=== PATIENT | male | born 1945 | race Caucasian/White ===

== ENCOUNTER 2016-06-30 01:19 | Day surgery (SDC) | payer MEDICARE ==
[~2016-06-30] VITALS: Ht 188 cm; Wt 111.9 kg
[~2016-06-30 01:19] MED LIST: ASCO-294 PO; ASPI-973 PO; BUME1TAB4 PO; CALC0.257 PO; CALC500T9 PO; CARV12.52 PO; CHOL10008 PO; CYAN500T53 SL; FEG324 PO; FLUT15.88 NOSTRIL; GABA600T2 PO; MULT1CAP33 PO; POTA-62 PO; PRE10 PO; PRE20 PO; SODI650T PO
[2016-06-30] MEDS ORDERED: CeFAZolin Inj 2 GM in IV Premix 1 EACH IV ONE (06:00)
[2016-06-30 06:30] VITALS: BP 165/73; PULSE 70; RESP 16; O2SAT 97
--- NOTE | 2016-06-30 06:30 | NUR ---
ADMISSION NOTE MALE PT ADMITTED FOR TUNNEL CATH INSERTION. DISCUSSED PLAN OF CARE WITH PT AND . SEE ADMIT AND FLOW SHEET
[2016-06-30 06:59] LABS: BASOPHILS % (AUTO) 0.2 % (0-3); EOSINOPHILS % (AUTO) 1.8 % (0-5); MONOCYTES % (AUTO) 3.9 % (4-12); Mean Corpuscular Hemoglobin 29.9 pg (27.0-35.0); Mean Corpuscular Volume 97.1 fL (81-100); NEUTROPHILS % (AUTO) 85.7 % (40-74); Platelet Count 130 bil/L (150-400)
[2016-06-30 07:12] LABS: INR 1.06 ratio
[2016-06-30] MEDS ORDERED: Heparin 5,000 Units/500 mL NS Premix IV ONE (07:50)
[2016-06-30] MEDS ORDERED: Heparin 1,000 Unit/mL 10 mL Inj ONE (07:50)
[2016-06-30] MEDS ORDERED: CeFAZolin Inj 2 gm / 50mL D5W IV ONE (08:20)
[2016-06-30] MEDS ORDERED: fentaNYL-PF 50 mCg/mL 2 mL Inj ONE (08:41)
[2016-06-30 09:15] VITALS: BP 156/56; PULSE 68; RESP 17; O2SAT 97
[2016-06-30 09:30] VITALS: BP 132/55; PULSE 68; RESP 17; O2SAT 97
[2016-06-30 09:45] VITALS: BP 144/64; PULSE 69; RESP 17; O2SAT 97
[2016-06-30 10:15] VITALS: BP 150/67; PULSE 70; RESP 16
--- NOTE | 2016-06-30 10:53 | NUR ---
DISCHARGE NOTE UP IN ROOM, TOLERATED WELL. DRESSING DRY AND INTACT. INSTRUCTIONS GIVEN. HOME WITH
--- NOTE | 2016-06-30 11:35 | DRSVH ---
PROCEDURE: CV TUNNEL CATH PLCMNT 1. Sonographic guidance for venous access. 2. Conscious sedation for 28 minutes. 3. Right internal jugular vein tunneled hemodialysis catheter placement. 4. Fluoroscopic guidance for catheter placement. INDICATIONS: ESRD TECHNIQUE: The indications, alternatives, benefits, risks, and complications of the procedure were e xplained to the patient and any family members present. Informed written consent was obtained and pl aced in the chart. The patient was brought to the angiography suite, and conscious sedation was admi nistered intravenously by prison staff, while continuous cardiorespiratory monitoring was pe rformed. Maximum sterile barrier technique was employed per standard protocol, including hand hygiene, cap, ma sk, sterile gown and gloves, and 2% chlorhexidine. Sterile ultrasound probe cover was also utilized. 1% lidocaine was used for local anaesthesia. Under sonographic guidance, the right internal jugular vein was accessed with a Micropuncture set. An 0.035J wire was advanced into the vena cava. Subcuta neous tunnel was created within the right anterior chest wall, through which a 14.5 English double lum en tunneled hemodialysis catheter was advanced. Following sequential venotomy tract dilation, the ca theter was advanced through the peel-away sheath and the tip was placed at the cavoatrial junction. Peel-away sheath was removed. Adequate flow was obtained through both lumens of the catheter. The v enotomy was closed with Vicryl, and the catheter was fastened to the skin with Ticron. Both lumens w ere flushed with heparinized saline. The patient tolerated the procedure without difficulty and was in stable condition at the conclusion of the procedure. COMPARISON: None. FINDINGS: The right internal jugular vein is patent by ultrasound. Fluoroscopic imaging demonstrates tip of th e catheter at the cavoatrial junction. IMPRESSION: Right internal jugular vein tunneled hemodialysis catheter placement using sonographic and fluoroscop ic guidance. Dictated by: Ramsey Walters M.D. on 06/30/2016 at 11:33 Approved by: Ramsey Walters M.D. on 06/30/2016 at 11:33
== END 2016-06-30 23:59 | disposition home or self-care (01) ==
LOC: SPI 01:19
PROVIDERS: ATTEND Radiology Diagnostic Radiology
DX: I12.0 Hypertensive chronic kidney disease with stage 5 chronic kidney disease or end stage renal disease (principal); N18.6 End stage renal disease; I25.10 Atherosclerotic heart disease of native coronary artery without angina pectoris; Z98.84 Bariatric surgery status; Z95.1 Presence of aortocoronary bypass graft; Z95.0 Presence of cardiac pacemaker; G47.33 Obstructive sleep apnea (adult) (pediatric); D64.9 Anemia, unspecified
CPT/HCPCS: 36558; 77001; 80048; 85025; 85610; 99152; 99153; C1750; C1769; J0690; J1644; J2250; J3010; J7030

== ENCOUNTER 2016-09-24 07:51 | Day surgery (SDC) | payer MEDICARE ==
[~2016-09-24] VITALS: Ht 189.2 cm; Wt 102.0 kg
[~2016-09-24 07:51] MED LIST changes: -CALC0.257 PO; +CALC667C9 PO; +GABA-502 PO; -GABA600T2 PO; -MULT1CAP33 PO; -POTA-62 PO; -SODI650T PO
[2016-09-24 08:38] LABS: BASOPHILS % (AUTO) 0.2 % (0-3); EOSINOPHILS % (AUTO) 1.7 % (0-5); MONOCYTES % (AUTO) 6.4 % (4-12); Mean Corpuscular Hemoglobin 29.6 pg (27.0-35.0); Mean Corpuscular Volume 94.6 fL (81-100); NEUTROPHILS % (AUTO) 80.9 % (40-74); Platelet Count 167 bil/L (150-400)
[2016-09-24] MEDS ORDERED: CETI5TAB28 PO (08:53)
--- NOTE | 2016-09-24 08:59 | NUR ---
Admitted for removal of Upper Left chest tunnel catheter today. Plan is to attempt to remove tunnel catheter at bedside, if not easily removed patient will go back to the casting house laborer. patient and are at the bedside and understand plan of care.
[2016-09-24 09:08] VITALS: BP 125/56; PULSE 70; RESP 12; O2SAT 99
[2016-09-24 09:58] VITALS: BP 128/61; PULSE 74; RESP 16; O2SAT 97
--- NOTE | 2016-09-24 10:11 | NUR ---
BRIONNA No bleeding or hematoma at left chest tunnel cath removal site. Discharge instructions reviewed, written information given and questions answered. Discharge home with at 1015.
--- NOTE | 2016-10-13 09:45 | DRSVH ---
PROCEDURE: CV REMOVE CATH TUNLD INDICATIONS: ESRD COMPARISON: None. FINDINGS: The tunneled hemodialysis catheter was successfully removed at the bedside. IMPRESSION: Status post removal of a tunneled hemodialysis catheter. Dictated by: Marivel Tellez M.D. on 10/13/2016 at 9:42 Approved by: Marivel Tellez M.D. on 10/13/2016 at 9:43
== END 2016-09-24 23:59 | disposition home or self-care (01) ==
LOC: SOUO 07:51
PROVIDERS: ATTEND Radiology Vascular & Interventional Radiology
DX: Z49.01 Encounter for fitting and adjustment of extracorporeal dialysis catheter (principal); N18.6 End stage renal disease

== ENCOUNTER 2016-10-07 11:46 | Observation (INO) | payer MEDICARE ==
[~2016-10-07 11:46] MED LIST changes: -CARV12.52 PO; +CETI5TAB28 PO
--- NOTE | 2016-10-07 15:22 | NUR ---
Arrival to [facility] Patient is alert and orientedx3. Patient arrived to [facility] approx 1315 via ambulance from [facility]. report received from Ruben RN in the [facility] unit. Ruben nurse paged Dr. Marcelo r/t patient's arrival to [facility]. Currently just transffered from 249-2 to Dialysis room 244 for dialysis. [facility] nurse aware.
--- NOTE | 2016-10-07 16:30 | NUR ---
Dialysis note: Tried to access WAN fistula but unsuccessful, venous needle sluggish and aspirated dark blood; Dr Will notified and dialysis tx cancelled.
[2016-10-07] MEDS ORDERED: Alum-Mag Hydrox-Simeth 30 mL Suspension PO PRN (16:40)
[2016-10-07] MEDS ORDERED: Ondansetron 2 mg/mL 2 mL Inj IVPUSH PRN (16:40)
[2016-10-07] MEDS ORDERED: Polyethylene Glycol (PEG) 17 Gm Powder PO PRN (16:40)
--- NOTE | 2016-10-07 16:56 | NUR ---
Arrival time to [facility] Arrival time to [facility] 1515.
[2016-10-07 17:06] VITALS: BP 109/66; PULSE 67; RESP 16; O2SAT 98
[2016-10-07] MEDS ORDERED: CETI10CA PO (17:31)
[2016-10-07] MEDS ORDERED: CALC500T9 PO (17:31)
[2016-10-07] MEDS ORDERED: SERT50TA9 PO (17:34)
--- NOTE | 2016-10-07 18:17 | PCM.HPMED ---
Subjective Date of Service Oct 07, 2016 Primary Provider: Admitting Physician: Earnest Gtz Primary Care Physician: Dallas Leo MD Attending Physician: Earnest Gtz Chief Complaint: Ground-level fall History of Present Illness: 71-year-old male with significant cardiac history and comorbidities including hypertension, A. fib, coronary artery disease with questionable [place] last year, and end-stage renal disease on dialysis Thursday and Thursday who presented to [facility] after suffering a ground-level fall. Per the reports the patient was stepping out of his motor home when he attempted to turn and missed a step, falling on his back onto the gravel, hitting his head and injuring his ribs and right hand. Patient states that he did not have lightheaded, dizzy, visual changes, chest pain, shortness of breath, or syncope. On presentation patient had a laceration to the occipital region that was stapled, and x-rays were significant for minimally displaced anterolateral left sixth through eighth rib fractures. CT of his head was negative. Patient was transferred to [facility] due to his dialysis needs. Per the patient report he had a left AV fistula placed June 30 at [facility], with a tunneled catheter that was removed 2-3 weeks ago. What I can gather from interview the patient's been able to access the left AV fistula for dialysis, however, when he presented here access was unobtainable and he was assessed by a chief engineer drilling and recovery who communicated this to Dr. Rivers, the patient's chief engineer drilling and recovery. Patient has been stable and transferred to [place] was requested so he can receive dialysis and be treated by his primary chief engineer drilling and recovery. Review of Systems: Complete review of systems performed; pertinent positives and negatives per history of present illness, all other systems reviewed and are negative Allergies Coded Allergies: Sulfa (Sulfonamide Antibiotics) (Verified Allergy, Severe, 09/24/16) amiloride (Verified Allergy, Severe, 09/24/16) amlodipine (Verified Allergy, Severe, 09/24/16) atorvastatin (Verified Allergy, Severe, 09/24/16) diltiazem (Verified Allergy, Severe, KHALIDA YOSELYN SYNDROME, 09/24/16) furosemide (Verified Allergy, Severe, 09/24/16) hydrochlorothiazide (Verified Allergy, Severe, 09/24/16) lisinopril (Verified Allergy, Severe, 09/24/16) morphine (Verified Allergy, Severe, 09/24/16) spironolactone (Verified Allergy, Severe, 09/24/16) triamterene (Verified Allergy, Severe, 09/24/16) aliskiren (Verified Allergy, Mild, 09/24/16) amiodarone (Verified Allergy, Mild, 09/24/16) simvastatin (Verified Allergy, Mild, 09/24/16) tamsulosin (Verified Adverse Reaction, Mild, 09/24/16) hydralazine (Verified Adverse Reaction, Unknown, 09/24/16) Pt requests this placed on his list of allergies due to a past potential reaction Uncoded Allergies: iron sucrose (Allergy, Severe, "bleeding in mouth and skin sloughing", 10/07) Home Medications Gabapentin 300 mg Prednisone 20 mg every other day Prednisone 17.5 mg every other day Sertraline 50 mg by mouth Cetirizine 10 mg Vitamin C Aspirin 81 mg Bumetanide 2 mg Calcium acetate Calcium carbonate D3 Ferrous gluconate Fluticasone propionate Exam Review of Systems: Constitutional: Negative, except as otherwise mentioned in the history above. Ophthalmologic: Negative, except as otherwise mentioned in the history above. Cardiovascular: Negative, except as otherwise mentioned in the history above. Respiratory: Negative, except as otherwise mentioned in the history above. Gastrointestinal: Negative, except as otherwise mentioned in the history above. Genitourinary: Negative, except as otherwise mentioned in the history above. Musculoskeletal: Negative, except as otherwise mentioned in the history above. Neurological: Negative, except as otherwise mentioned in the history above. Psychiatric: Negative, except as otherwise mentioned in the history above. Hematologic/Lymphatic: Negative, except as otherwise mentioned in the history above. Allergic/Immunologic: Negative, except as otherwise mentioned in the history above. PMH 1. Hypertension 2. Paroxysmal Atrial fibrillation not on anticoagulation 3. Coronary artery disease 4. TIAs 5. Reported [place] June 2015 6. End-stage renal disease on dialysis Thursday, , Thursday 7. History of kidney stones 8. Peripheral neuropathy 9. GERD 10. BPH 12. Chronic anemia 13. Sleep apnea 14. 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 Surgical History AV fistula placement 06/30/16 Family History Mother is alive and well at 93 with only medical history of pacemaker Father of [place] in the 70s Social History Hx Alcohol Use: Yes ("rare") Hx Substance Use: No Smoking Status: Former Smoker Living Arrangement: with Family (in a motor home) Exam Vital Signs Vital Sign - Last Date Time Temp Pulse Resp B/P Pulse Ox O2 Delivery O2 Flow Rate FiO2 10/07/16 17:06 36.6 67 16 109/66 98 Room Air Exam General: Age-appropriate male in no acute distress HEENT: PERRLA, EOMI, nonicteric, membranes moist; estela and occipital region, small amounts of blood Lymph: No lymphadenopathy Cardio: Regular rate and rhythm; chest tender to palpation Respiratory: CTA bilaterally, no wheezes, no crackles Abdomen: Soft, positive bowel sounds, nontender, nondistended Extremities: No edema; numerous scrapes and bruises, and bandages in place Psych: Appropriate mood and affect Neuro: CN II through XII grossly intact, sensation intact throughout Skin: No rash Lab and Diagnostics X-Rays, CTs and MRIs No new imaging at [facility] Assessment & Plan 71-year-old male with a mechanical ground-level fall with multiple injuries and negative CT-brain was transferred to [facility] for dialysis needs. Patient had recent AV fistula placed with removal of his tunneled catheter 2- 3 weeks ago. Once at [facility] attempts were made to access the AV fistula but were unsuccessful. Dr. Will and communicated with Dr. Rivers and Dr. Walters about her inability to access the site. Dr. Walters would normally be able to place another port but is unavailable through the rest the week. Dr. Will apprised Dr. Rivers of the situation and recommendations were made to transfer the patient to [facility]. Discussed transfer with Dr. Foreman is accepting physician. Patient [facility] be [facility] on the [facility] renal unit room A514. Pain Evaluation: Adequate Pain Control Resuscitation Status: DNR/DNI:Do Not Resuscitate/Intubate Attending Statement The patient was seen and examined together with Dr. Marcelo on 10/08/16 and I agree with the history, exam and plan as outlined in the note above. Darvin Marcelo DO Oct 07, 2016 18:17 Earnest Gtz Oct 08, 2016 08:04
--- NOTE | 2016-10-07 18:27 | PCM.DC.MED ---
Discharge Summary Date of Service Oct 07, 2016 Dates of Hospitalization Date of Hospital Admission Oct 07, 2016 at 16:07 Date of Discharge: Oct 07, 2016 Providers: Admitting Physician: Earnest Gtz Primary Care Physician: Dallas Leo MD Attending Physician: Earnest Gtz Diagnosis at Time of Discharge Diagnosis at Time of Discharge End-stage renal failure Mechanical ground-level fall Consultations Dr. Suman Walters Procedures XRay, CTs & MRIs No new imaging at [facility] Brief History 71-year-old male with significant cardiac history and comorbidities including hypertension, paroxysmal A. fib not on anticoagulation, coronary artery disease with questionable [place] last year, and end-stage renal disease on dialysis Thursday and Thursday who presented to [facility] after suffering a ground- level fall. Per the reports the patient was stepping out of his motor home when he attempted to turn and missed a step, falling on his back onto the gravel , hitting his head and injuring his ribs and right hand. Patient states that he did not have lightheaded, dizzy, visual changes, chest pain, shortness of breath, or syncope. On presentation patient had a laceration to the occipital region that was stapled, and x-rays were significant for minimally displaced anterolateral left sixth through eighth rib fractures. CT of his head was negative. Patient was transferred to [facility] due to his dialysis needs. Per the patient report he had a left AV fistula placed June 30 at [facility], with a tunneled catheter that was removed 2-3 weeks ago. What I can gather from interview the patient's been able to access the left AV fistula for dialysis, however, when he presented here access was unobtainable and he was assessed by a control operator who communicated this to Dr. Rivers, the patient's control operator. Patient has been stable and transferred to [place] was requested so he can receive dialysis and be treated by his primary control operator. Hospital Course 71-year-old male with a mechanical ground-level fall with multiple injuries and negative CT-brain was transferred to [facility] for dialysis needs. Patient had recent AV fistula placed with removal of his tunneled catheter 2- 3 weeks ago. Once at [facility] attempts were made to access the AV fistula but were unsuccessful. Dr. Will and communicated with Dr. Rivers and Dr. Walters about her inability to access the site. Dr. Walters would normally be able to place another port but is unavailable through the rest the week. Dr. Will apprised Dr. Rivers of the situation and recommendations were made to transfer the patient to [facility]. Discussed transfer with Dr. Foreman is accepting physician. Patient will be placed on the [facility] renal unit room A514. Patient was transferred Exam Vital Signs (Last) Date Time Temp Pulse Resp B/P Pulse Ox O2 Delivery O2 Flow Rate FiO2 10/07/16 17:06 36.6 67 16 109/66 98 Room Air Exam General: Age-appropriate male in no acute distress HEENT: PERRLA, EOMI, nonicteric, membranes moist; estela and occipital region, small amounts of blood Lymph: No lymphadenopathy Cardio: Regular rate and rhythm; chest tender to palpation Respiratory: CTA bilaterally, no wheezes, no crackles Abdomen: Soft, positive bowel sounds, nontender, nondistended Extremities: No edema; numerous scrapes and bruises, and bandages in place Psych: Appropriate mood and affect Neuro: CN II through XII grossly intact, sensation intact throughout Skin: No rash Discharge Medications Discharge Medications Ascorbate Calcium (Vitamin C) 500 Mg Tablet 500 MG PO DAILY (Reported) Aspirin (Aspirin) 81 Mg Tablet 81 MG PO DAILY (Reported) Bumetanide (Bumetanide) 1 Mg Tablet 2 MG PO Mon,Wed,Fri and Sun (Reported) Calcium Acetate (Calcium Acetate) 667 Mg Capsule 2,001 MG PO TIDWM (Reported) Calcium Carbonate (Tums) 500 Mg Tab.chew 2,000 MG PO DAILY (Reported) Cetirizine HCl (Zyrtec) 10 Mg Capsule 10 MG PO DAILY (Reported) Cholecalciferol (Vitamin D3) (Vitamin D3) 1,000 Unit Tab.chew 1,000 UNIT PO BID (Reported) Ferrous Gluconate (Ferrous Gluconate) 324 Mg Tab 324 MG PO BID (Reported) Gabapentin (Gabapentin) 300 Mg Capsule 300-600 MG PO HS (Reported) Prednisone (PredniSONE) 20 Mg Tablet 20 MG PO every other day (Reported) Prednisone (PredniSONE) 10 Mg Tablet 17.5 MG PO every other day (Reported) Sertraline HCl (Sertraline) 50 Mg Tablet 50 MG PO QAM (Reported) As needed Fluticasone Propionate (Fluticasone Propionate) 50 Mcg/Actuation Clements.susp 1 SPRAY NOSTRIL DAILY PRN PRN allergies (Reported) Time spent 40 min Attending Statement The patient was seen and examined together with Dr. Marcelo on 10/08/16 and I agree with the history, exam and plan as outlined in the note above. Darvin Marcelo DO Oct 07, 2016 18:26 Earnest Gtz Oct 08, 2016 08:05
--- NOTE | 2016-10-07 18:29 | PCM.DIMED ---
Discharge Instructions Date of Service Oct 07, 2016 Dates of Hospitalization Oct 07, 2016 at 16:07 Discharge Diagnosis Discharge Diagnosis End-stage renal failure Mechanical ground-level fall Patient Instructions Patient Instructions You are being transferred to [facility] to receive dialysis while here in the hospital. They can reassess your fistula while you are there. Darvin Marcelo DO Oct 07, 2016 18:29
--- NOTE | 2016-10-07 18:36 | NUR ---
Discharge New order from Dr. Marcelo for Discharge to [facility]. Charge nurse aware and setting up transfer via BLS.
--- NOTE | 2016-10-07 19:32 | NUR ---
Report Report given to [facility] nurse nelly r/katherine tipton.
--- NOTE | 2016-10-07 20:44 | NUR ---
Case Management: IDRIS explained to patient at 2014, all questions answered. Signed original placed in chart, copy given to patient. Jesenia Taylor RN
--- NOTE | 2016-10-07 21:00 | NUR ---
assumed care did not get complete report patient is pending transfer to [facility] for Dialysis d/t access failure of Patient wanting to attempt to go to [facility] but realized thia would not be d/t pain limiting mobility, did get up to [facility] w/ 2pa but only had gas no BM, assisted back to bed in very much pain stated "they were giving me Dilaudid @ [place] which was effective, obtained a 1x dose of Dilaudid 1mg gave w/effect, notable for multiple bruises especially arms a splint on R middle finger as well as gauze wrapping both arms, noted estela to back of scalp w/minor swelling and blood on pillow though no noted active bleeding.
[2016-10-07] MEDS ORDERED: HYDROmorphone 1 mg/mL Inj IVPUSH ONE (21:40)
--- NOTE | 2016-10-07 22:50 | NUR ---
Transfer BLS transport here, upon assessment patient drowsy from Dilaudid with O2 sat in 80's, placed on O2 3L and sat came up to 95%, SBP also lower in lo 90's but stable and asymptomatic, otherwise neuro wnl. Transfer via slide board to stretcher exiting w/ 2 EMT @ this time on portable O2. Report called and given to Gabi Soares RN @ [facility] patient to go to room 514 bed 2.
== END 2016-10-07 22:50 | disposition short-term general hospital (02) ==
LOC: EDSTATUS 11:46 → MOC 16:07 → UNDOADMIN 16:07 → INTOOBSV 16:07
PROVIDERS: ADMIT Internal Medicine; ATTEND Internal Medicine
DX: I12.0 Hypertensive chronic kidney disease with stage 5 chronic kidney disease or end stage renal disease (principal); N18.6 End stage renal disease; Z99.2 Dependence on renal dialysis; I48.0 Paroxysmal atrial fibrillation; I25.10 Atherosclerotic heart disease of native coronary artery without angina pectoris; Z86.73 Personal history of transient ischemic attack (TIA), and cerebral infarction without residual deficits; I25.2 Old myocardial infarction; G62.9 Polyneuropathy, unspecified; K21.9 Gastro-esophageal reflux disease without esophagitis; N40.0 Benign prostatic hyperplasia without lower urinary tract symptoms; D64.9 Anemia, unspecified; G47.30 Sleep apnea, unspecified; L40.9 Psoriasis, unspecified; Z87.891 Personal history of nicotine dependence; Z66 Do not resuscitate
CPT/HCPCS: 96374; G0378; G0379; J1170